=== PATIENT | female | born 1975 | race Hispanic/Latino ===

== ENCOUNTER 2019-07-05 20:18 | Emergency (ER) | payer MEDICARE ==
--- NOTE | 2019-07-05 20:29 | Event Note ---
ED Screening Note Date of service: 07/05/19 Time: 20:27 ED Screening Note: 43 y o female presents with cc of lefty ankle pain stating that her ortho sent her in to get xrays of the ankle to assess for loose screws from her surgery This initial assessment/diagnostic orders/clinical plan/treatment(s) is/are subject to change based on patients health status, clinical progression and re- assessment by fellow clinical providers in the ED. Further treatment and workup at subsequent clinical providers discretion. Patient/guardian urged not to elope from the ED as their condition may be serious if not clinically assessed and managed. Initial orders include: xr
--- NOTE | 2019-07-05 22:35 | XRay Report ---
LEFT ANKLE 2 VIEWS. INDICATION / CLINICAL INFORMATION: pain COMPARISON: None available. FINDINGS: BONES / JOINT(S): Previous fusion at the tibiotalar and distal tibiofibular joints. Negative for bony injury or obvious hardware failure. No significant arthritis. SOFT TISSUES: No significant abnormality. ADDITIONAL FINDINGS: None. Signer Name: Gregory Chacon MD Signed: 07/05/2019 10:31 PM Workstation Name: [id number]
--- NOTE | 2019-07-05 22:43 | Emergency Department Report ---
ED Back Pain/Injury HPI - General Chief Complaint: Extremity Injury, Lower Stated Complaint: LEFT LEG PAIN Time Seen by Provider: 07/05/19 20:26 Source: patient Limitations: No Limitations - History of Present Illness Initial Comments: 43 YO SENT BY ORTHO FOR SPLINT DUE TO POST FUSION CONCERNS. HE WANTS ANKLE STABILIZED. NO NEW TRAUMA - Related Data Allergies Allergy/AdvReac Type Severity Reaction Status Date / Time butorphanol [From Stadol] Allergy Unknown Verified 07/05/19 20:23 fentanyl [From Duragesic] Allergy Unknown Verified 07/05/19 20:23 ketorolac [From Toradol] Allergy Unknown Verified 07/05/19 20:23 morphine Allergy Unknown Verified 07/05/19 20:23 Penicillins Allergy Unknown Verified 07/05/19 20:23 Sulfa (Sulfonamide Allergy Unknown Verified 07/05/19 20:23 Antibiotics) sulfamethoxazole Allergy Unknown Verified 07/05/19 20:23 [From Bactrim] tramadol [From Ultram] Allergy Unknown Verified 07/05/19 20:23 trimethoprim [From Bactrim] Allergy Unknown Verified 07/05/19 20:23 ED Review of Systems ROS: Stated complaint: LEFT LEG PAIN Other details as noted in HPI Comment: All other systems reviewed and negative ED Past Medical Hx - Past Medical History Medical history: no medical history Surgical history: other (FUSION ANKLE) ED Back Pain Physical Exam - Exam General: Vital signs noted. No distress. Alert and acting appropriately. Back/Abdomen: No Abdominal Tenderness, No Perithoracic Tenderness, No Perilumbar Tenderness, No Sacroiliac Tenderness, No Flank Tenderness, No Straight Leg Raise Pain Neuro: Yes Normal Sensation, Yes Normal DTR's, No Motor Weakness, No Normal Gait ED Course Vital Signs 07/05/19 20:26 Temperature 98 F Pulse Rate 97 H Respiratory 18 Rate Blood Pressure 108/56 O2 Sat by Pulse 97 Oximetry ED Medical Decision Making - Medical Decision Making SENT BY ORTHO FOR SPLINT AND CRUTCHES DUE TO ? SCREWS BEING DISLODGED IN HER ANKLE MINIMAL SWELLING DP PLUS 2 B AMBULATION LIMITED BY PAIN Vital Signs 07/05/19 20:26 Temperature 98 F Pulse Rate 97 H Respiratory 18 Rate Blood Pressure 108/56 O2 Sat by Pulse 97 Oximetry Critical care attestation.: If time is entered above; I have spent that time in minutes in the direct care of this critically ill patient, excluding procedure time. ED Disposition Clinical Impression: Ankle pain Disposition: DC-01 TO HOME OR SELFCARE Is pt being admited?: No Does the pt Need Aspirin: No Condition: Stable Additional Instructions: ELEVATE AND REST LEG MOTRIN OR TYLENOL FOR PAIN CRUTCHES FOR COMFORT SEE YOUR MD CHRISTOPHER Referrals: GRETCHEN HARRINGTON MD [Staff Physician] - 3-5 Days Time of Disposition: 22:42
[2019-07-05] MEDS ORDERED: IBUPROFEN PO ONE (23:39)
[2019-07-05 23:43] VITALS: BP 110/54
[2019-07-06] MEDS ORDERED: IBUPROFEN PO ONE (05:32)
== END 2019-07-05 23:41 | disposition home or self-care (01) ==
LOC: ED 20:18
DX: M25.572 Pain in left ankle and joints of left foot (principal); G89.18 Other acute postprocedural pain; Z98.890 Other specified postprocedural states; Z88.2 Allergy status to sulfonamides; Z88.0 Allergy status to penicillin; Z88.8 Allergy status to other drugs, medicaments and biological substances